=== PATIENT | male | born 1965 | race Caucasian/White ===

== ENCOUNTER 2019-10-20 08:22 | Day surgery (SDC) | payer OTHER ==
[~2019-10-20] VITALS: Ht 185.4 cm; Wt 112.2 kg
[~2019-10-20 08:22] MED LIST: HYDACE5325 PO; NAPR500 PO
--- NOTE | 2019-10-20 09:37 | NUR ---
10/20/19 0937 Jemima Thurman O2 10L VIA NONREBREATHER
== END 2019-10-20 10:16 | disposition home or self-care (01) ==
LOC: ORSCSDS 08:22
PROVIDERS: Internal Medicine Gastroenterology
PROC: 0DJD8ZZ Inspection of Lower Intestinal Tract, Via Natural or Artificial Opening Endoscopic (ICD-10-PCS; principal; 2019-10-20 09:45)
DX: Z12.11 Encounter for screening for malignant neoplasm of colon (principal); K64.4 Residual hemorrhoidal skin tags; K64.8 Other hemorrhoids; G47.33 Obstructive sleep apnea (adult) (pediatric); E78.5 Hyperlipidemia, unspecified; I48.91 Unspecified atrial fibrillation; Z98.84 Bariatric surgery status; Z87.891 Personal history of nicotine dependence
CPT/HCPCS: J2250; J2704; J7120

== ENCOUNTER → 2021-11-30 | Outpatient (CLI) | payer OTHER ==
[~2021-11-30] MED LIST changes: +ACET325 PO; +AMOCLA875 PO; +MIRALAX17 G3 PO; +ROXICODONE5 MG PO
[2021-11-30 08:01] LABS: Source, Urine Clean Catch
[2021-11-30 08:12] LABS: Bacteria Not Seen /hpf; Red Blood Cells, Urine TNTC /hpf (0-2); Squamous Epithelial Cells Rare /hpf (Few); White Blood Cells, Urine Not Seen /hpf (0-5)
== END ==
LOC: LAB 08:00 → LAB SHORT 08:00
PROVIDERS: Physician Assistant
DX: R31.0 Gross hematuria (principal)
CPT/HCPCS: 81015; 87086